=== PATIENT | female | born 1995 | race Caucasian/White ===

== ENCOUNTER 2018-06-12 17:47 | Emergency (ER) | payer OTHER ==
[~2018-06-12] VITALS: Ht 167.6 cm; Wt 58.5 kg
[2018-06-12 18:07] VITALS: Ht 167.6 cm; Wt 58.5 kg
[2018-06-12 19:36] VITALS: BP 120/85
== END 2018-06-12 19:36 | disposition home or self-care (01) ==
LOC: ED 17:47
DX: H10.9 Unspecified conjunctivitis (principal)